=== PATIENT | female | born 1980 | race Hispanic/Latino ===

== ENCOUNTER 2016-12-26 17:23 | Emergency (ER) | payer MEDICARE ==
--- NOTE | 2016-12-26 18:36 | Emergency Department Report ---
Chief Complaint: Seizure Stated Complaint: SEIZURE Time Seen by Provider: 12/26/16 18:35 - HPI History of Present Illness: known sz on and off meds for last month was on dilantin meth recovery needs med clearance to return a/o in triage not post ictic sun glasses on also was on neurontin she is upset, nervous, and just wants clearance last used meth 12-08-16 - Exam Vital Signs: Vital Signs 12/26/16 18:31 Temperature 98.4 F Pulse Rate 64 Respiratory 16 Rate Blood Pressure 108/69 O2 Sat by Pulse 99 Oximetry MSE screening note: Focused history and physical exam performed. Due to findings the following was ordered: ED Disposition for MSE Condition: Stable
[2016-12-26 18:53] LABS: Basophils % (Auto) 0.5 % (0.0-1.8); Hematocrit 41.5 % (30.3-42.9); Hemoglobin 13.7 gm/dl (10.1-14.3); Mean Corpuscular HGB Conc 33 % (30-34); Mean Corpuscular Hemoglobin 29 pg (28-32); Mean Corpuscular Volume 89 fl (79-97); Platelet Count 261 K/mm3 (140-440); Red Blood Count 4.68 M/mm3 (3.65-5.03); Red Cell Distribution Width 14.2 % (13.2-15.2)
[2016-12-26 19:07] LABS: Alanine Aminotransferase 6 units/L (7-56); Albumin/Globulin Ratio 1.3 %; Alkaline Phosphatase 59 units/L (35-129); Anion Gap 15 mmol/L; BUN/Creatinine Ratio 11.42; Blood Urea Nitrogen 8 mg/dL (7-17); Calcium 9.2 mg/dL (8.4-10.2); Carbon Dioxide 30 mmol/L (22-30); Chloride 99.1 mmol/L (98-107); Glucose 98 mg/dL (65-100); Potassium 4.6 mmol/L (3.6-5.0); Sodium 139 mmol/L (137-145)
[2016-12-26 19:07] LABS: Urine Drugs of Abuse Note Disclamer
[2016-12-26 19:29] LABS: Bacteria,Urine 1+ /HPF (Negative); Bilirubin,Urine NEG (Negative); Blood,Urine NEG (Negative); Ketones,Urine NEG (Negative); Leukocyte Esterase,Urine MOD (Negative); Mucus,Urine 2+ /HPF; Nitrite,Urine NEG (Negative); Protein,Urine <15 mg/dL mg/dL (Negative); Urobilinogen,Urine < 2.0 mg/dL (<2.0)
[2016-12-27 05:37] VITALS: BP 100/62
[2016-12-27] MEDS ORDERED: DILANTIN PO ONE (05:57)
[2016-12-27] MEDS ORDERED: NEURONTIN PO ONE ×2 (05:58→06:15)
--- NOTE | 2016-12-27 06:03 | Emergency Department Report ---
ED Seizure HPI - General Chief Complaint: Seizure Stated Complaint: SEIZURE Time Seen by Provider: 12/27/16 05:58 Source: patient Mode of arrival: Ambulatory Limitations: No Limitations - History of Present Illness Initial Comments: Patient is a 36-year-old female with history of seizure disorder last seizure approximately one year ago on Dilantin 100 mg 3 times a day and gabapentin 600 mg 4 times a day but has not been taking her medication for the last few days as she is out presenting today because of seizure. Patient states that seizure came on suddenly. Unclear if there were any witnesses. Similar to her prior events. She was confused afterwards but is now back to her normal self. He does not have any incontinence or tongue biting. Generally feels a little tired. - Related Data Previous Rx's Medication Instructions Recorded Last Taken Type Gabapentin [Neurontin] 600 mg PO 4XD #16 tablet 12/27/16 Unknown Rx Phenytoin (25 mg/ml) [Dilantin] 100 mg PO BID #10 oral.liqd 12/27/16 Unknown Rx Allergies Allergy/AdvReac Type Severity Reaction Status Date / Time benztropine mesylate AdvReac Dizziness Verified 12/26/16 18:39 [From Cogentin] metoclopramide HCl AdvReac Seizure Verified 12/26/16 18:39 [From Reglan] morphine AdvReac Rash Verified 12/26/16 18:39 Sulfa (Sulfonamide AdvReac Rash Verified 12/26/16 18:39 Antibiotics) ziprasidone HCl [From Geodon] AdvReac Seizure Verified 12/26/16 18:39 ziprasidone mesylate AdvReac Seizure Verified 12/26/16 18:39 [From Geodon] ED Review of Systems ROS: Stated complaint: SEIZURE Other details as noted in HPI Comment: All other systems reviewed and negative Constitutional: denies: chills, fever ENT: denies: throat pain Respiratory: denies: cough Cardiovascular: denies: chest pain Gastrointestinal: denies: nausea, vomiting Genitourinary: denies: dysuria Skin: denies: rash Psychiatric: denies: anxiety ED Past Medical Hx - Past Medical History Previous Medical History?: Yes Hx Seizures: Yes Additional medical history: lupus - Surgical History Past Surgical History?: Yes Additional Surgical History: tubal - Social History Smoking Status: Never Smoker Substance Use Type: Other - Medications Home Medications: Home Medications Medication Instructions Recorded Confirmed Last Taken Type Gabapentin [Neurontin] 600 mg PO 4XD #16 tablet 12/27/16 Unknown Rx Phenytoin (25 mg/ml) [Dilantin] 100 mg PO BID #10 oral.liqd 12/27/16 Unknown Rx ED Physical Exam - General Limitations: No Limitations General appearance: alert, in no apparent distress - Head Head exam: Present: atraumatic - Eye Eye exam: Present: normal appearance - ENT ENT exam: Present: normal exam - Respiratory Respiratory exam: Present: normal lung sounds bilaterally. Absent: respiratory distress, wheezes - Cardiovascular Cardiovascular Exam: Present: regular rate, normal rhythm - GI/Abdominal GI/Abdominal exam: Present: soft. Absent: distended, tenderness - Neurological Exam Neurological exam: Present: alert, oriented X3, CN II-XII intact. Absent: motor sensory deficit - Psychiatric Psychiatric exam: Present: normal affect - Skin Skin exam: Present: intact ED Course Vital Signs 12/26/16 12/27/16 12/27/16 18:31 03:27 05:37 Temperature 98.4 F 97.9 F Pulse Rate 64 90 78 Respiratory 16 18 18 Rate Blood Pressure 108/69 113/65 Blood Pressure 100/62 [Left] O2 Sat by Pulse 99 99 99 Oximetry ED Medical Decision Making - Lab Data Result diagrams: 12/26/16 18:47 12/26/16 18:47 - Medical Decision Making Labs UA and Upreg preordered, all are unremarkable Appears to be a breakthrough seizure, patient is awake and alert with no focal deficits and coherent Giving dose of home medication of Dilantin gabapentin Patient states that she sees a nurse practitioner and should be able to get her scripts for gabapentin Dilantin in a couple days, will give her short-term prescription of her seizure medications in the meantime. Critical care attestation.: If time is entered above; I have spent that time in minutes in the direct care of this critically ill patient, excluding procedure time. ED Disposition Clinical Impression: Breakthrough seizure Disposition: DISCHARGED TO HOME OR SELFCARE Is pt being admited?: No Does the pt Need Aspirin: No Condition: Stable Instructions: Recurrent Seizures Adult (ED) Additional Instructions: Please follow up with the primary care physician in the next 3-5 days. Please make a routine follow-up appointment with a neurologist in the next 1-2 weeks. Return the ER if your symptoms worsen or you develop new symptoms. It is important that you take her seizure medications to prevent serious injury or ill health effects. Prescriptions: Gabapentin [Neurontin] 600 mg PO 4XD #16 tablet Phenytoin (25 mg/ml) [Dilantin] 100 mg PO BID #10 oral.liqd Referrals: PRIMARY CARE, [Primary Care Provider] - 3-5 Days [facility] [Provider Group] - 3-5 Days Time of Disposition: 06:05
[2016-12-27] MEDS ORDERED: TYLENOL PO ONE (08:00)
== END 2016-12-27 08:04 | disposition home or self-care (01) ==
LOC: ED 17:23
DX: G40.89 Other seizures (principal); Z88.5 Allergy status to narcotic agent; Z88.2 Allergy status to sulfonamides; Z88.8 Allergy status to other drugs, medicaments and biological substances
CPT/HCPCS: 36415; 80053; 80307; 81001; 81025; 82550; 85025; 99283